=== PATIENT | female | born 1940 | race Caucasian/White ===

== ENCOUNTER 2018-05-20 05:38 | Inpatient (IN) | payer OTHER, MEDICARE ==
[2018-05-09 11:28] LABS: HEMATOCRIT 42.3 % (37.0-47.0); HEMOGLOBIN 14.2 gm/dL (12.0-15.0); MCH 30.9 pg (26.0-34.0); MCHC 33.5 g/dL (28.0-37.0); MCV 92.3 fL (80.0-100.0); RBC 4.58 mil/uL (4.20-5.00); RDW 13.7 % (10.5-14.5); WBC 6.5 thou/uL (4.0-11.0)
[2018-05-09 11:31] LABS: URINE BILIRUBIN NEGATIVE (Negative); URINE BLOOD NEGATIVE (Negative); URINE CLARITY CLEAR; URINE COLOR YELLOW; URINE GLUCOSE-RANDOM* NEGATIVE (Negative); URINE KETONES TRACE (Negative); URINE LEUKOCYTES-REFLEX NEGATIVE (Negative); URINE NITRITE-REFLEX NEGATIVE (Negative); URINE PROTEIN (DIPSTICK) NEGATIVE (Negative); URINE UROBILINOGEN 0.2 E.U./dl (0.2-1.0)
[2018-05-09 11:39] LABS: ALBUMIN 4.4 g/dL (3.4-5.0); CALCIUM 10.2 mg/dL (8.5-10.1); CREATININE 1.1 mg/dL (0.6-1.0); POTASSIUM 4.9 mmol/L (3.5-5.1)
[2018-05-09 11:44] LABS: PROTIME 10.2 Seconds (9.3-11.4)
[~2018-05-20] VITALS: Ht 157.5 cm; Wt 68.0 kg
[2018-05-20] VITALS (11 sets, daily range): BP systolic 140–171; BP diastolic 52–69
--- NOTE | ~2018-05-20 | O ---
[facility] [place] [address] [place] [address] OPERATIVE REPORT Name: PAN MOSES Room #: 457-P [facility] IN M.R.#: [id number] Admission: 05/20/18 Attend Phys: Manjinder Rondon MD Discharge: Date of : 42 Report #: [id number] THIS REPORT FOR: //name// CC: Nataly Rondon DATE OF SERVICE: 05/20/2018 PREOPERATIVE DIAGNOSIS: End-stage degenerative arthritis, right hip. POSTOPERATIVE DIAGNOSIS: End-stage degenerative arthritis, right hip. PROCEDURE: Right total hip arthroplasty. SURGEON: Manjinder Rondon MD. INDICATIONS: This still very active and fully independent 77-year-old female complains of progressive right hip pain. She has limited range of motion and rather marked crepitus and pain. Clinical and radiographic findings are consistent with moderately severe end-stage degenerative osteoarthritis. She has elected to go ahead with right total hip arthroplasty. We have discussed preoperatively various operative techniques and approaches and potential risks and benefits. She and her understand well and prefer to go ahead with a total hip replacement today. DESCRIPTION OF PROCEDURE: The patient was taken to the operating room where she was placed under general anesthesia. Prophylactic intravenous antibiotics were administered. She was turned to the left lateral decubitus position. The right hip, thigh, leg were meticulously prepped and draped. A slightly curving skin incision was made centered over the greater trochanter extending posteriorly. This was carried through fascia exposing the posterior aspect of the hip joint. The short external rotators and capsule were taken down and tagged with several #1 Tevdek sutures. The hip was dislocated and marked degenerative change on both the femoral head and acetabulum were noted. A femoral neck osteotomy was created, and the canal was prepared using reamers and hand broaches. The Rodriguez and Nephew hip system was utilized. The canal was gradually enlarged with broaches, and a Synergy size 13 femoral component seemed to fit nicely. The trial component was removed and attention directed to the acetabulum. Satisfactory exposure was established. The acetabulum was then sequentially reamed, gradually advancing to a 52 mm reamer. A Rodriguez and Nephew StikTite 3-hole hemispherical shell was then inserted, placing this in alignment with her true acetabulum, which positioned this in about 20 degrees of anteversion and about 45 degrees off vertical. The cup seated nicely and appeared to be secure. In addition, two screws were placed through the apex of the shell engaging good periacetabular bone and adding to overall stability of the shell. A 52 x 36 mm acetabular liner was then inserted, placing the 20-degree elevated lip at about [address] [address] OPERATIVE REPORT Name: PAN MOSES Room #: 457-P [facility] IN .R.#: [id number] Admission: 05/20/18 Attend Phys: Manjinder Rondon MD Discharge: Date of : 42 Report #: [id number] the 10 o'clock posterior position. This also seated nicely and appeared to be secure. A trial reduction was performed once again using the size 13 femoral stem trial, and the hip seemed to be best stabilized when using a -3 neck length and a 36 mm head size. With the trial component in place, the hip demonstrated good range of motion and good stability. Leg length appeared to be symmetric with the opposite side. The trial component was removed, and the permanent Synergy porous femoral stem using the Rodriguez and Nephew size 13 component was then selected. This was impacted into the canal. It seated nicely. During the insertion, however, there appeared to be a small crack at the base of the greater trochanter. This was nondisplaced, but I could sense slight movement consistent with a transverse fracture in this region. Given this, a stabilization procedure was performed using several #2 FiberWire sutures passed in a [id number] fashion through small drill holes in the upper portion of the greater trochanter and more distally along the lateral aspect of the proximal femur. These were snugged down firmly and the cracks seemed to be stabilized in anatomic position. The permanent cobalt chrome 36 mm head with a -3 mm neck length was applied and impacted on the Packer taper neck. It was reduced. Alignment, range of motion, stability and leg lengths were once again assessed and felt to be satisfactory. The capsule and short external rotators were then repaired back to bone, taking care to position sutures appropriately to enhance the fixation of the greater trochanter where the previous crack had been noted. This seemed to accentuate the overall stability and at the conclusion of this repair of the crack was really no longer palpable, and there seemed to be no movement of the greater trochanter as the hip was passed through a full arc of motion. The hip seemed stable in good position. A single Hemovac was then left in the wound exiting through a separate stab incision. The fascia was then closed with multiple #1 Vicryl sutures. The subcutaneous tissues were closed with 0 Monocryl and the skin was closed with skin yesy. A sterile dressing was applied. The patient was awakened and returned to recovery room in good condition. <ELECTRONICALLY SIGNED> By: Manjinder Rondon MD 05/21/18 0725 [id number] Manjinder Rondon MD /nt
--- NOTE | ~2018-05-20 | D ---
[facility] [address] [place] [address] DISCHARGE SUMMARY Name: PAN MOSES Room #: 221-P [facility] IN ..#: [id number] Admission: 05/20/18 Attend Phys: Manjinder Rondon MD Discharge: Date of : 42 Report #: [id number] THIS REPORT FOR: //name// CC: Nataly Rondon DATE OF ADMISSION: 05/20/2018 DATE OF DISCHARGE: 05/23/2018 FINAL DIAGNOSIS: End-stage degenerative osteoarthritis, right hip. OPERATIONS AND PROCEDURES: Right total hip arthroplasty. HISTORY OF PRESENT ILLNESS: This active, independent 77-year-old female lives independently with her and has been functioning well, but with progressive right hip pain. Clinical and radiographic evaluation confirmed rather severe degenerative osteoarthritis. She has not seen improvement with conservative treatment and has therefore elected to go ahead with total hip replacement. HOSPITAL COURSE: The patient was admitted and taken to the operating room on May 20. She underwent right total hip arthroplasty, which she tolerated well. Postoperatively, her course was largely unremarkable. She was able to rapidly advance to a regular diet and oral pain medication. She was placed on Lovenox temporarily for anticoagulation. She was started with physical therapy and advanced nicely, achieving full safe independence using a walker for ambulation with weightbearing as tolerated. She seems to be safe and independent with some limited assistance and therefore seems ready to be discharged home today. I have discussed at some length with the patient and her further treatment measures. She will continue a regular diet at home. DISCHARGE MEDICATIONS: Include Synthroid 88 mcg daily, Prilosec 20 mg daily, tramadol 50 mg q.4 hours p.r.n. for pain, Tylenol q.3h. p.r.n. for mild pain, aspirin 325 mg daily for anticoagulation prophylaxis. She will monitor the dressing and let us know should there be any problems or questions. I can see her back in my office next week for routine followup. If there are any problems or questions, we should at least talk over the phone. If she is doing quite well, then we can see her back the following week for followup and suture removal. By: [id number] Manjinder Rondon MD /nt
[~2018-05-20 05:38] MED LIST: CALCIUM 600 +1 EAC1 PO; GLUCOSAMINE CH1 EAC8 PO; LEVOXYL88 MCG PO; MOBIC15 MG PO; PRILOSEC 20 MG20 MG PO; ULTRACET TABLET1 TAB PO; VITAMIN D-32000 UNIT PO
[2018-05-21] VITALS: BP 157/58
[2018-05-21 04:00] VITALS: BP 143/59
[2018-05-21 05:25] LABS: HEMATOCRIT 31.7 % (37.0-47.0); HEMOGLOBIN 10.9 gm/dL (12.0-15.0); MCH 31.6 pg (26.0-34.0); MCHC 34.2 g/dL (28.0-37.0); MCV 92.4 fL (80.0-100.0); RBC 3.43 mil/uL (4.20-5.00); RDW 13.6 % (10.5-14.5)
[2018-05-21 07:15] VITALS: BP 142/61
[2018-05-21 15:40] VITALS: BP 120/53
[2018-05-21 19:50] VITALS: BP 143/58
[2018-05-22 03:28] VITALS: BP 113/45
[2018-05-22 05:50] LABS: HEMOGLOBIN 10.3 gm/dL (12.0-15.0); MCH 31.4 pg (26.0-34.0); MCHC 34.1 g/dL (28.0-37.0); RBC 3.26 mil/uL (4.20-5.00); RDW 13.4 % (10.5-14.5); WBC 7.8 thou/uL (4.0-11.0)
[2018-05-22 07:00] VITALS: BP 138/61
[2018-05-22 20:46] VITALS: BP 128/67
[2018-05-23 07:20] VITALS: BP 122/60
[2018-05-23 07:35] LABS: HEMATOCRIT 29.3 % (37.0-47.0); HEMOGLOBIN 10.2 gm/dL (12.0-15.0); MCH 31.7 pg (26.0-34.0); MCHC 34.7 g/dL (28.0-37.0); MCV 91.4 fL (80.0-100.0); RBC 3.21 mil/uL (4.20-5.00); RDW 13.5 % (10.5-14.5); WBC 7.8 thou/uL (4.0-11.0)
[2018-05-23 12:14] VITALS: BP 122/60
[2018-05-23 12:23] VITALS: BP 122/60
== END 2018-05-23 15:30 | disposition home health service (06) | DRG 470 ==
LOC: PRE 05:38 → 4W 05:57 → TBA 05:57 → 4W 11:46 → PRE 12:33 → SICU 05-22 10:58 → ENTRNSPT 05-23 15:04 → EDTRNSPTSTS 05-23 15:07 → SICU 05-23 15:30
PROVIDERS: Orthopaedic Surgery
PROC: 0SR90JZ Replacement of Right Hip Joint with Synthetic Substitute, Open Approach (ICD-10-PCS; principal; 2018-05-20)
DX: M16.11 Unilateral primary osteoarthritis, right hip (principal); E03.9 Hypothyroidism, unspecified; K21.9 Gastro-esophageal reflux disease without esophagitis; Z79.899 Other long term (current) drug therapy
CPT/HCPCS: 10047; 15002; 50010; 50101; 50382; 50414; 51412; 51771; 53000; 53367; 56521; 56525; 56527; 56530; 56805; 62110; 62900; 70005